=== PATIENT | female | born 1960 ===

== ENCOUNTER 2016-10-01 07:54 | Day surgery (SDC) | payer MEDICARE, MEDICAID ==
[2016-09-24 09:41] VITALS: BMI 42.2
[2016-10-01 08:19] LABS: ADD MANUAL DIFF? NO
[2016-10-01 08:22] LABS: BASO # 0.03 K/mm3 (0.0-2.0); BASO % 0.4 % (0.0-3.0); EOS # 0.3 (0.0-0.7); EOS % 3.8 % (1.5-5.0); GRAN % 64.1 % (50.0-68.0); HEMATOCRIT 42.5 % (36.0-48.0); LYMPH % 25.8 % (22.0-35.0); MEAN CELL VOLUME 89.5 fL (80.0-105.0); MEAN CORPUSCULAR HEMOGLOBIN 29.9 pg (25.0-35.0); MEAN CORPUSCULAR HGB CONC 33.4 g/dl (31.0-37.0); MEAN PLATELET VOLUME 9.2 fl (7.0-11.0); MONO # 0.5 (0.1-0.6); MONO % 5.9 % (1.0-6.0); PLATELET COUNT 260 10^3/uL (120.0-450.0); RED CELL DISTRIBUTION WIDTH 12.7 % (11.5-14.5); WHITE BLOOD COUNT 7.8 10^3/ul (4.5-11.0)
[2016-10-01 08:33] LABS: INR 0.93 (0.93-1.08); PARTIAL THROMBOPLASTIN TIME 26.8 Seconds (23.7-30.8)
[2016-10-01 08:56] LABS: BILIRUBIN,TOTAL 0.5 mg/dL (0.2-1.3); CALCIUM 9.5 mg/dL (8.4-10.5); POTASSIUM 4.7 mmol/L (3.6-5.0); TOTAL PROTEIN 8.7 g/dL (5.8-8.3)
[2016-10-01] MEDS ORDERED: Benzocaine/Butamben/Tetracai 14-2-2% TOP Spray TOP ONE (10:10)
[2016-10-01] MEDS ORDERED: Propofol 10 mg/ml Inj (20 ML) ONE (10:12)
[2016-10-01] MEDS ORDERED: [UNRECOGNIZED DRUG - OTHER] XX ONE (10:15)
[2016-10-02] MEDS ORDERED: Midazolam 2 MG/2 ML VIAL ONE (07:55)
[2016-10-03 15:30] VITALS: BP 133/79; PULSE 72; RESP 16; TEMP 98.2; O2SAT 96
== END 2016-10-01 12:31 | disposition home or self-care (01) ==
LOC: ENDO 07:54
PROVIDERS: ATTEND Internal Medicine
DX: K29.50 Unspecified chronic gastritis without bleeding (principal); R14.0 Abdominal distension (gaseous); I10 Essential (primary) hypertension; E78.5 Hyperlipidemia, unspecified
CPT/HCPCS: 36415; 43239; 43259; 80053; 85025; 85610; 85730; 88305; 88342; J2704; J3010; J7040